=== PATIENT | female | born 1940 | race Caucasian/White ===

== ENCOUNTER 2017-08-11 07:44 | Observation (INO) ==
--- NOTE | 2017-08-11 07:56 | Emergency Department Note ---
Disposition Clinical Impression: Atrial fibrillation with RVR Disposition: Admitted As Inpatient Condition: Fair Arrhythmia/Palpitations HPI - General Chief Complaint: ED General Medical Stated Complaint: "afib kicked in" Time Seen by Provider: 08/11/17 07:45 Source: patient Mode of arrival: ambulatory Limitations: no limitations Nursing Notes Reviewed: Yes Vital Signs Reviewed: Yes - History of Present Illness HPI Narrative: 77-year-old female is a history of atrial fib he takes medications for when necessary apparently today had an onset of outpatient checked her heart rate noted was called EMS and had her transported she has chest pressure but no chest pain shies blurred vision double vision loss vision nausea vomiting diarrhea patient states she was fine last evening she has cough hemoptysis or sputum production she denies diarrhea melena hematochezia hematemesis Patient tells me that she took cardizem 2 tablets at the onset of the symptoms to try to alleviate the etiology for this she takes as a when necessary medication for the atrial fib she also has a history of taking metoprolol the takes this as a when necessary basis also possibly every other day Pt Subjective Complaint: rapid heart beat, "heart racing", irregular heart beat Onset (ago): Just [employer] Duration: constant Severity: moderate Context: occurred during rest Arrhythmia History: atrial fibrillation Associated symptoms: Reports: shortness of breath. Denies: chest pain, syncope , near-syncope, nausea, vomiting, anxiety, diaphoresis, cough, paresthesias, muscle cramps Treatments prior to arrival: other (Cardizem) - Related Data Home Medications Medication Instructions Recorded Confirmed ALPRAZolam [Xanax 0.5 MG Tablet] 0.5 mg PO BID 03/04/15 08/11/17 Lisinopril [Zestril] 20 mg PO QAM 03/04/15 08/11/17 Nitroglycerin [Nitrostat] 0.4 mg SL AD PRN 03/04/15 08/11/17 Pantoprazole Sodium [Protonix] 40 mg PO QAM 03/04/15 08/11/17 Rivaroxaban [Xarelto] 20 mg PO QPM 03/04/15 08/11/17 Cholecalciferol (D-3) [Vitamin D] 1,000 unit PO DAILY 06/28/16 08/11/17 Diltiazem [Cardizem] 30 mg PO AD PRN 09/20/16 08/11/17 Previous Rx's Medication Instructions Recorded Acetaminophen w/Cod 300-30 mg 1 each PO Q4HR PRN 3 Days #12 06/08/17 [Tylenol w/Codeine #3] tablet Metoprolol XL (24 HR) Succ [Toprol 12.5 mg PO DAILY tab.er.24h 08/12/17 Xl] Allergies Allergy/AdvReac Type Severity Reaction Status Date / Time doxycycline AdvReac See Verified 06/08/17 19:08 Comments All systems ED: reviewed and negative except as stated. Review of Systems: As Per HPI Constitutional: Denies: fever, chills, weakness Eyes: Denies: eye pain, eye discharge ENT ED: Denies: ear pain, throat pain Cardiovascular: Reports: chest pain, palpitations. Denies: dyspnea on exertion Respiratory: Denies: cough, dyspnea, wheezes Gastrointestinal: Denies: abdominal pain, nausea, vomiting Genitourinary: Denies: urgency, dysuria, frequency Musculoskeletal: Denies: back pain, neck pain Integumentary: Denies: rash, abrasion Neurological: Denies: headache, weakness Psychiatric: Denies: anxiety, depression Endocrine: Denies: fatigue Hematological/Lymphatic: Denies: easy bleeding Allergic/Immunologic: Denies: facial swelling Past Medical History - Past Medical History Attestation: Yes The following information was validated with the patient. 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: no [employer] SEPARATOR HARD history - Social History Smoking Status: Never smoker Smokeless Tobacco Status: No Alcohol use: Reports: none Drug use: Reports: none Physical Exam - General Limitations: no limitations General appearance: alert, in no apparent distress, anxious - Head Head exam: atraumatic, normocephalic, normal inspection - Eye Eye exam: Present: normal appearance, PERRL, EOMI - ENT ENT exam: normal exam, normal oropharynx, mucous membranes moist, TM's normal bilaterally, normal external ear exam - Neck Neck exam: Present: normal inspection, full ROM, trachea midline - Chest Chest inspection: Present: normal inspection, symmetric chest wall rise - Respiratory Respiratory exam: Present: normal lung sounds bilaterally - Cardiovascular Cardiovascular exam: Present: tachycardia, irregular rhythm - Abdominal Exam Abdominal exam: Present: soft, Non-Tender, normal bowel sounds. Absent: mass, pulsatile mass - Extremities Exam Extremities exam: Present: normal inspection, full ROM, normal capillary refill. Absent: tenderness, pedal edema, joint swelling, calf tenderness - Expanded Lower Extremity Exam Neurovascular/Tendon exam: Present: normal capillary refill, normal fine/light touch Gait: observed and normal - Back Exam Back exam: Present: normal inspection, full ROM. Absent: muscle spasm - Neurological Exam Neurological exam: Present: alert, oriented X3, CN II-XII intact, normal gait - Psychiatric Psychiatric exam: Present: normal affect, normal mood - Skin Skin exam: Present: warm, dry, intact, normal color Course Course Narrative: Patient was immediately seen and examined EKG was performed as well as laboratory data and chest x-ray initially patient thought she was taking dig but it was actually diltiazem/Cardizem she had taken 2 prior to coming to the emergency room patient's heart rate though has not slowed down any during this period of time as result she was ordered 20 mg of Cardizem IV to try to slow and regulate her heart rate down Vital Signs Temperature 98.8 F 08/11/17 07:48 Pulse Rate 156 08/11/17 07:48 Respiratory Rate 18 08/11/17 07:48 Blood Pressure 158/103 08/11/17 07:48 O2 Sat by Pulse Oximetry 95 08/11/17 07:48 Temperature 97.8 F 08/12/17 06:00 Pulse Rate 57 08/12/17 06:00 Respiratory Rate 15 08/12/17 06:00 Blood Pressure 163/76 08/12/17 06:00 O2 Sat by Pulse Oximetry 94 08/12/17 06:00 Oxygen Delivery Oxygen Delivery Room Air Arrhythmia/Palpitations - Differential Diagnosis Differential Diagnosis: Likely: palpitations, artial arrhythmia - Medical Records Medical records reviewed: Yes I reviewed the patient's medical records. - Lab Data Lab results reviewed: Yes I reviewed the patient's lab results. Result diagrams: 08/12/17 04:43 08/12/17 04:43 Lab Results 08/11/17 08/11/17 08/11/17 Range/Units 08:07 08:07 08:07 WBC 5.8 (4.3-11.1) K/mcL RBC 4.49 (3.82-4.97) M/mcL Hgb 13.5 (11.5-15.4) g/dL Hct 41.4 (35.3-44.9) % MCV 92.2 (83.0-100.0) fL MCH 30.1 (28.0-33.3) pg MCHC 32.6 (31.6-35.5) g/dL RDW 13.4 (11.5-14.5) % Plt Count 281 (140-400) K/mcL MPV 8.7 L (9.4-12.4) fL Immature Gran % 0.3 (0-4) % Seg Neutrophils % 55.2 % Lymphocytes % 34.1 % Monocytes % 7.8 % Eosinophils % 1.6 % Basophils % 1.0 % Neutrophils # 3.2 (1.6-8.9) K/mcL Lymphocytes # 2.0 (0.6-4.6) K/mcL Monocytes # 0.5 (0.0-1.3) K/mcL Eosinophils # 0.1 (0.0-0.6) K/mcL Basophils # 0.1 (0.0-0.2) K/mcL PT 14.0 H (9.4-12.1) Seconds INR 1.3 APTT 40.1 H (26.0-36.0) Seconds Sodium 139 (136-145) mEq/L Potassium 4.1 (3.5-5.1) mEq/L Chloride 107 (98-107) mEq/L Carbon Dioxide 22 L (23-29) mEq/L BUN 12 (8-23) mg/dL Creatinine 0.79 (0.60-1.20) mg/dL Est GFR ( Amer) > 60 (> 60) Est GFR (Non-Af Amer) > 60 (> 60) BUN/Creatinine Ratio 15 (6-26) Glucose 106 H (70-105) mg/dL Calculated Osmolality 288 (280-300) Calcium 9.3 (8.6-10.3) mg/dL Troponin I < 0.03 (< 0.04) ng/mL B-Natriuretic Peptide (Less than 100) pg/mL 08/11/17 Range/Units 08:07 WBC (4.3-11.1) K/mcL RBC (3.82-4.97) M/mcL Hgb (11.5-15.4) g/dL Hct (35.3-44.9) % MCV (83.0-100.0) fL MCH (28.0-33.3) pg MCHC (31.6-35.5) g/dL RDW (11.5-14.5) % Plt Count (140-400) K/mcL MPV (9.4-12.4) fL Immature Gran % (0-4) % Seg Neutrophils % % Lymphocytes % % Monocytes % % Eosinophils % % Basophils % % Neutrophils # (1.6-8.9) K/mcL Lymphocytes # (0.6-4.6) K/mcL Monocytes # (0.0-1.3) K/mcL Eosinophils # (0.0-0.6) K/mcL Basophils # (0.0-0.2) K/mcL PT (9.4-12.1) Seconds INR APTT (26.0-36.0) Seconds Sodium (136-145) mEq/L Potassium (3.5-5.1) mEq/L Chloride (98-107) mEq/L Carbon Dioxide (23-29) mEq/L BUN (8-23) mg/dL Creatinine (0.60-1.20) mg/dL Est GFR ( Amer) (> 60) Est GFR (Non-Af Amer) (> 60) BUN/Creatinine Ratio (6-26) Glucose (70-105) mg/dL Calculated Osmolality (280-300) Calcium (8.6-10.3) mg/dL Troponin I (< 0.04) ng/mL B-Natriuretic Peptide 318 H (Less than 100) pg/mL - Radiology Data Radiology results reviewed: Yes I reviewed the patient's radiology results. - EKG Data EKG attestation: Yes I reviewed and interpreted this EKG. EKG results narrative: EKG atrial fibrillation rapid ventricular response rate 154 QRS 120 QT 304 axis XXVI nonspecific T-wave changes most likely rate dependent Critical Care Time Critical Care Time: Yes Total Critical Care Time: 35 Attestation: Critical care performed: 35 minutes high probability clinically significant life -threatening deterioration patient condition as result of atrial fib with RVR with rates exceeding 150-160 at times with rate at times dropping into the 130s patient will be admitted for observation making arrangements for admission regaining of laboratory data and discussion with family Time is exclusive of separately billable procedures. Time includes: direct patient care, patient reassessment, coordination of patient care, interpretation of data (laboratory data, radiology data, and respiratory data), review of patient's medical records, medical consultation and documentation of patient care. Procedures included in critical care time: Procedures excluded from critical care time:
[2017-08-11 08:13] LABS: Basophils # 0.1 K/mcL (0.0-0.2); Eosinophils # 0.1 K/mcL (0.0-0.6); Eosinophils % 1.6 %; Hematocrit 41.4 % (35.3-44.9); Hemoglobin 13.5 g/dL (11.5-15.4); Immature Granulocytes % 0.3 % (0-4); Lymphocytes % 34.1 %; Mean Corpuscular HGB Conc 32.6 g/dL (31.6-35.5); Mean Corpuscular Hemoglobin 30.1 pg (28.0-33.3); Mean Corpuscular Volume 92.2 fL (83.0-100.0); Mean Platelet Volume 8.7 fL (9.4-12.4); Monocytes # 0.5 K/mcL (0.0-1.3); Monocytes % 7.8 %; Neutrophils # 3.2 K/mcL (1.6-8.9); Platelet Count 281 K/mcL (140-400); Red Blood Count 4.49 M/mcL (3.82-4.97); Red Cell Distribution Width 13.4 % (11.5-14.5); Segmented Neutrophils % 55.2 %
[2017-08-11 08:20] LABS: INR 1.3
[2017-08-11 08:22] LABS: Activated Partial Thrombo Time 40.1 Seconds (26.0-36.0)
[2017-08-11 08:37] LABS: Troponin I < 0.03 ng/mL (< 0.04)
[2017-08-11 08:58] LABS: BUN/Creatinine Ratio 15 (6-26); Blood Urea Nitrogen 12 mg/dL (8-23); Calcium 9.3 mg/dL (8.6-10.3); Carbon Dioxide 22 mEq/L (23-29); Chloride 107 mEq/L (98-107); Glucose 106 mg/dL (70-105); Osmolality,Calculated 288 (280-300); Potassium 4.1 mEq/L (3.5-5.1); Sodium 139 mEq/L (136-145); eGFR For African Americans > 60 (> 60); eGFR For Non-African Americans > 60 (> 60)
[2017-08-11] MEDS ORDERED: *HR* Acetaminophen w/Cod 300-30 mg 1 TAB TABLET PO PRN (09:37)
[2017-08-11] MEDS ORDERED: Naloxone 0.4 MG/ML INJ IVP PRN (09:37)
[2017-08-11] MEDS ORDERED: 0.9 % Sodium Chloride 1,000 ML IVC SCH (09:37)
[2017-08-11] MEDS ORDERED: Nitroglycerin 0.4 MG TAB.SUBL SL PRN ×2 (09:37→10:20)
--- NOTE | 2017-08-11 10:05 | Electrocardiograph Report ---
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
[2017-08-11] MEDS: Cholecalciferol (D-3) 1,000 UNIT TABLET PO SCH (11:08)
[2017-08-11] MEDS: ALPRAZolam 0.5 MG TABLET PO SCH ×2 (11:09→20:52)
[2017-08-11] MEDS: Lisinopril 20 MG TABLET PO SCH (11:09)
--- NOTE | 2017-08-11 12:33 | Internal Med History&Physical ---
Date of Encounter: 08/12/17 Time of Encounter: 11:55 Assessment and Plan (1) Atrial fibrillation with RVR Current visit: Yes Status: Acute Now converted back to NSR. She agreed to start Toprol XL at a dose of 12.5 mg daily instead of using 25 mg every other day. Continue Xarelto (2) History of hypertension Current visit: No Status: Chronic Continue lisinopril. Will start Toprol-XL 12.5 mg daily. Internal Medicine - H&P: HPI Chief complaint: Atrial fibrillation Admitted From: Emergency Dept Plans for Post Hospital Care: Home History of present illness: Ms. Ibrahim is a 77 year old female who came to emergency room stating she had onset of atrial ablation shortly after awakening today. She took to Cardizem tablets to attempt aborting the AF. When it did not resolve after a few minutes she came to emergency room. She was evaluated and given IV Cardizem. She was admitted to [facility] floor for ongoing care needs. Her cardiovascular history significant for paroxysmal atrial fibrillation present for several years. She is on Xarelto for CVA prophylaxis. She has taken Toprol XL 25 mg every other day for 12 doses for AF prophylaxis. She is uncertain if she has been tried on antiarrhythmics. She was hospitalized at [facility] April 2017 for AF and had a cardiogram which showed LVEF 25-30%. (LVEF on echo March 2015 was 45-50%.) Left atrial size was 3.4 cm. Right Atrium was not mentioned. Estimated RVSP was 35 mmHg. There was mild to moderate mitral stenosis and mitral regurgitation. 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 The CASTANEDA to LAD graft was patent. The SVG to distal RCA was occluded. She had 2 vessel CABG and mitral valve repair surgery 2003 with stent approximately 2007. She denies ID DVT or pulmonary embolus. Past Med Surg Social Fam HX - Past Medical History Medical history: atrial fibrillation, coronary artery disease, hypertension Additional medical history: Hyperlipidemia Psychiatric history: anxiety - Past Surgical History Surgical History: appendectomy, coronary bypass (CABG), knee replacement, thyroidectomy Additional surgical history: mitral valve repair-13 years ago, bi-lateral knee replacements - Social History Smoking Status: Never smoker Smokeless Tobacco Status: No Alcohol use: none Drug use: none - Family History Mother Living Status: Hx Family Cardiac Disorders: No Hx Family Respiratory Disorders: No Hx Family Cancer: Yes (BREAST) Hx Family GI Disorders: No Hx Family Endocrine Disorder: No Hx Family Neuromuscular Disorders: No Hx Family Neurologic Disorders: No Hx Family HEENT Disorders: No Hx Family Autoimmune Disorders: No Father Living Status: Hx Family Cardiac Disorders: Yes Hx Family Respiratory Disorders: No Hx Family Cancer: No Hx Family GI Disorders: No Hx Family Endocrine Disorder: No Hx Family Neuromuscular Disorders: No Hx Family Neurologic Disorders: No Hx Family HEENT Disorders: No Hx Family Autoimmune Disorders: No Internal Medicine - H&P: Meds ALPRAZolam [Xanax 0.5 MG Tablet] 0.5 mg PO BID 03/04/15 [History] Lisinopril [Zestril] 20 mg PO QAM 03/04/15 [History] Nitroglycerin [Nitrostat] 0.4 mg SL AD PRN 03/04/15 [History] Pantoprazole Sodium [Protonix] 40 mg PO QAM 03/04/15 [History] Rivaroxaban [Xarelto] 20 mg PO QPM 03/04/15 [History] Cholecalciferol (D-3) [Vitamin D] 1,000 unit PO DAILY 06/28/16 [History] Diltiazem [Cardizem] 30 mg PO AD PRN 09/20/16 [History] Acetaminophen w/Cod 300-30 mg [Tylenol w/Codeine #3] 1 each PO Q4HR PRN 3 Days # 12 tablet 06/08/17 [Rx] Metoprolol [Lopressor] 25 mg PO 08/11/17 [History] 3 Allergy/AdvReac Type Severity Reaction Status Date / Time doxycycline AdvReac See Verified 06/08/17 19:08 Comments All Systems PM: A 10-system review of systems was performed and is negative for pertinent findings except as documented above in the HPI. Review of systems: Gen.: She states her weight is stable the past few months Cardiovascular: As per history of present illness Respiratory: She is a lifelong nonsmoker and has no known chronic lung disease GI: She denies disorders of her liver gallbladder or exocrine pancreas : She denies hematuria dysuria or kidney stones Neurologic: She denies large distribution strokes or seizures. Endocrine: She denies diabetes. She had lipid profile 05/17/2017 which showed total cholesterol 213 and total/HDL ratio of 4.5. She had thyroid surgery several years ago with nodules removed. Hematology/oncology: She denies blood disorders cancers or anemia Psychiatric: She has anxiety but denies depression or other mental health issues [place] skeletal: She has DJD and history of right hip bursitis. She denies other bone joint or muscle disorders. - Constitutional Vitals: Temp Pulse Resp BP Pulse Ox 97.8 F 60 16 112/68 96 08/11/17 10:37 08/11/17 10:37 08/11/17 10:37 08/11/17 10:37 08/11/17 10:37 Exam: Gen.: She is a well-developed well-nourished female who appears in no acute distress at present time HEENT: Head is atraumatic and normocephalic. Eyes: EOMI. There is no scleral icterus. Mouth: Mucosa is moist. Neck: Supple and nontender. There is no thyromegaly or adenopathy noted. Heart: Regular without murmurs gallops or ectopics Lungs: No wheezes or crackles are heard. Abdomen: Soft and nontender. No masses or guarding are noted. Extremities: There is no cyanosis edema or clubbing noted. Dorsalis pedis and posterior tibial pulses are 1-2 over 2 bilaterally. Neurologic: Mental status: She is talkative and a good historian. Cranial nerves: Smile is symmetric. Forehead wrinkles bilaterally. Tongue protrudes midline. EOMI. Motor: There is no pronator drift. Cerebellar: Finger to nose is intact bilaterally. Skin: Warm and dry Internal Med - H&P Results - Labs CBC & Chem 7: 08/12/17 04:43 08/12/17 04:43
[2017-08-11] MEDS: Metoprolol XL (24 HR) Succ 25 MG TAB.ER.24H PO SCH (14:13)
[2017-08-11] MEDS ORDERED: *HR* Rivaroxaban 10 MG TABLET PO SCH (18:00)
[2017-08-12 06:11] LABS: Basophils # 0.1 K/mcL (0.0-0.2); Eosinophils # 0.2 K/mcL (0.0-0.6); Eosinophils % 3.4 %; Hematocrit 38.3 % (35.3-44.9); Hemoglobin 12.3 g/dL (11.5-15.4); Immature Granulocytes % 0.2 % (0-4); Lymphocytes # 2.4 K/mcL (0.6-4.6); Lymphocytes % 47.5 %; Mean Corpuscular HGB Conc 32.1 g/dL (31.6-35.5); Mean Corpuscular Hemoglobin 29.7 pg (28.0-33.3); Mean Corpuscular Volume 92.5 fL (83.0-100.0); Mean Platelet Volume 9.1 fL (9.4-12.4); Monocytes # 0.4 K/mcL (0.0-1.3); Monocytes % 7.3 %; Neutrophils # 2.1 K/mcL (1.6-8.9); Platelet Count 254 K/mcL (140-400); Red Blood Count 4.14 M/mcL (3.82-4.97); Red Cell Distribution Width 13.5 % (11.5-14.5); Segmented Neutrophils % 40.6 %
[2017-08-12 06:29] LABS: BUN/Creatinine Ratio 12 (6-26); Blood Urea Nitrogen 9 mg/dL (8-23); Calcium 9.1 mg/dL (8.6-10.3); Carbon Dioxide 26 mEq/L (23-29); Chloride 107 mEq/L (98-107); Glucose 89 mg/dL (70-105); Magnesium 2.2 mg/dL (1.6-2.6); Osmolality,Calculated 288 (280-300); Potassium 4.3 mEq/L (3.5-5.1); Sodium 140 mEq/L (136-145); eGFR For African Americans > 60 (> 60); eGFR For Non-African Americans > 60 (> 60)
[2017-08-12 07:13] VITALS: BP 163/76
--- NOTE | 2017-08-12 09:46 | Discharge Summary ---
Date of Encounter: 08/12/17 Time of Encounter: 09:35 - Discharge Diagnosis (1) Atrial fibrillation with RVR Priority: Primary Status: Resolved (2) History of hypertension Priority: Secondary Status: Chronic Hospital course: Ms. Ibrahim is a 77 year old female who came to emergency room stating she had onset of atrial fibrillation shortly after awakening today. She took 2 Cardizem tablets to attempt aborting the AF. When it did not resolve after a few minutes she came to emergency room. She was evaluated and given IV Cardizem. [facility] was [facility] for ongoing care needs. Initial orders were written by the emergency room physician. I saw her on August 11 and performed the history and physical. She converted back to normal sinus rhythm shortly after receiving the dose of Cardizem in emergency room. Repeat cardiac enzymes showed no evidence of myocardial damage. She remained in normal sinus rhythm throughout the remainder of her hospital stay. After discussion with patient she agreed to change Toprol dose to 12.5 mg daily. She will follow with her PCP and/or employee counselor within 1 week. - Time Spent with Patient Total time spent providing and/or coordinating discharge services: - Discharge Medications Home Medications: ALPRAZolam [Xanax 0.5 MG Tablet] 0.5 mg PO BID 03/04/15 [History] Lisinopril [Zestril] 20 mg PO QAM 03/04/15 [History] Nitroglycerin [Nitrostat] 0.4 mg SL AD PRN 03/04/15 [History] Pantoprazole Sodium [Protonix] 40 mg PO QAM 03/04/15 [History] Rivaroxaban [Xarelto] 20 mg PO QPM 03/04/15 [History] Cholecalciferol (D-3) [Vitamin D] 1,000 unit PO DAILY 06/28/16 [History] Diltiazem [Cardizem] 30 mg PO AD PRN 09/20/16 [History] Acetaminophen w/Cod 300-30 mg [Tylenol w/Codeine #3] 1 each PO Q4HR PRN 3 Days # 12 tablet 06/08/17 [Rx] Metoprolol XL (24 HR) Succ [Toprol Xl] 12.5 mg PO DAILY tab.er.24h 08/12/17 [Rx ] Allergies/Adverse Reactions: 3 Allergy/AdvReac Type Severity Reaction Status Date / Time doxycycline AdvReac See Verified 06/08/17 19:08 Comments Date of admission: 08/11/17 08:42 Primary care physician: Declan Campos DO - Constitutional Vitals: Temp Pulse Resp BP Pulse Ox 97.8 F 57 15 163/76 94 08/12/17 06:00 08/12/17 06:00 08/12/17 06:00 08/12/17 06:00 08/12/17 06:00 - Patient Status Disposition: Home, Self-Care Functional capacity at discharge: independent ambulation Overall status at discharge: patient is progressing back to baseline - Discharge Instructions Follow Up With: Declan Campos DO [Primary Care Provider] - 1 week - Diet and Activity Activity: resume usual activities as tolerated Diet: advance to your usual diet
[2017-08-12] MEDS: Cholecalciferol (D-3) 1,000 UNIT TABLET PO SCH (10:00)
[2017-08-12] MEDS: Lisinopril 20 MG TABLET PO SCH (10:00)
[2017-08-12] MEDS: Metoprolol XL (24 HR) Succ 25 MG TAB.ER.24H PO SCH (10:01)
[2017-08-12] MEDS: ALPRAZolam 0.5 MG TABLET PO SCH (10:01)
== END 2017-08-12 11:55 | disposition home or self-care (01) ==
LOC: INPPIK 07:44 → EMEROOPIK 07:44 → INPPIK 09:44
PROVIDERS: ADMIT Internal Medicine; ATTEND Internal Medicine